=== PATIENT | female | born 1935 | race Two or more races ===

== ENCOUNTER 2024-01-08 16:47 | Observation (INO) | payer OTHER ==
[2024-01-08 18:18] LABS: BASO % 0.8 % (0-2.0); EOS % 1.6 % (0-4.5); HEMATOCRIT 43.1 % (32.4-45.2); HEMOGLOBIN 14.5 GM/dL (10.7-15.3); LYMPH % 13.8 % (8-40); MCH 31.9 pg (25.7-33.7); MCHC 33.6 g/dl (32.0-36.0); MEAN CELL VOLUME 94.8 fl (80-96); MEAN PLT VOLUME 9.2 fl (7.5-11.1); MONO % 7.9 % (3.8-10.2); NEUT % 75.9 % (42.8-82.8); PLATELET COUNT 241 10^3/uL (134-434); RBC 4.55 M/mm3 (3.60-5.2); WHITE BLOOD COUNT 6.4 K/mm3 (4.0-10.0)
[2024-01-08 18:22] LABS: VENOUS O2 SATURATION 31.1 % (70-80); VENOUS PCO2 55.5 mmHg (38-52); VENOUS PH 7.39 (7.310-7.410)
[2024-01-08 18:26] LABS: INR 1.46 (0.83-1.09); PROTHROMBIN TIME (PATIENT) 16.9 SEC (9.7-13.0)
[2024-01-08 18:29] LABS: ACTIVATED PTT 35.6 SECONDS (25.2-36.5)
[2024-01-08 18:37] LABS: CHLORIDE 103 mmol/L (98-107); POTASSIUM 5.3 mmol/L (3.5-5.1); SODIUM 138 mmol/L (136-145)
[2024-01-08 18:39] LABS: ALBUMIN 4.1 g/dl (3.4-5.0); ANION GAP 2 mmol/L (4-13); BLOOD UREA NITROGEN 23.7 mg/dL (7-18); CALCIUM 9.8 mg/dL (8.5-10.1); CO2 33 mmol/L (21-32); GLUCOSE,RANDOM 97 mg/dL (74-106); MAGNESIUM 2.2 mg/dL (1.8-2.4)
[2024-01-08 18:42] LABS: CREATININE 0.6 mg/dL (0.55-1.3); SGOT/AST 30 U/L (15-37); SGPT/ALT < 6 U/L (13-61)
[2024-01-08 18:44] LABS: BILIRUBIN,TOTAL 1.4 mg/dL (0.2-1); TOT PROT 8.3 g/dl (6.4-8.2)
[2024-01-08 18:45] LABS: ALK PHOS 67 U/L (45-117)
[2024-01-08 18:48] LABS: N-TERMINAL BNP 1504.6 pg/ml (5-450)
[2024-01-08] MEDS ORDERED: FUROSEMIDE 40 MG/4 ML INJECTABLE VIAL ONE (19:17)
[2024-01-08] MEDS: FUROSEMIDE 40 MG/4 ML INJECTABLE VIAL IVPUSH ONE (19:20)
[2024-01-08 20:51] LABS: PH,URINE 7.5 (5.0-8.0); URINE APPEARANCE CLEAR; URINE BILIRUBIN NEGATIVE (NEGATIVE); URINE COLOR YELLOW; URINE GLUCOSE (UA) NEGATIVE (NEGATIVE); URINE KETONE NEGATIVE (NEGATIVE); URINE LEUK ESTERASE NEGATIVE (NEGATIVE); URINE NITRITE NEGATIVE (NEGATIVE); URINE PROTEIN NEGATIVE (NEGATIVE); URINE UROBILINOGEN 0.2 mg/dL (0.2-1.0)
[2024-01-09 03:49] VITALS: BMI 20.9
[2024-01-09 07:06] LABS: EOS % 1.6 % (0-4.5); HEMATOCRIT 39.1 % (32.4-45.2); HEMOGLOBIN 12.9 GM/dL (10.7-15.3); LYMPH % 15.3 % (8-40); MCH 31.4 pg (25.7-33.7); MEAN CELL VOLUME 95.1 fl (80-96); MEAN PLT VOLUME 9.5 fl (7.5-11.1); MONO % 10.4 % (3.8-10.2); NEUT % 71.7 % (42.8-82.8); PLATELET COUNT 209 10^3/uL (134-434); RBC 4.11 M/mm3 (3.60-5.2); RDW 14.3 % (11.6-15.6); WHITE BLOOD COUNT 5.5 K/mm3 (4.0-10.0)
[2024-01-09 07:15] LABS: POTASSIUM 3.7 mmol/L (3.5-5.1)
[2024-01-09 07:18] LABS: CALCIUM 9.1 mg/dL (8.5-10.1)
[2024-01-09 07:22] LABS: CREATININE 0.7 mg/dL (0.55-1.3)
[2024-01-09] MEDS ORDERED: LYTES/YERBA SANTA 240 ML BOTTLE MM PRN (07:42)
[2024-01-09] MEDS ORDERED: FUROSEMIDE 40 MG/4 ML INJECTABLE VIAL IVPUSH SCH (10:00)
[2024-01-09] MEDS: PANTOPRAZOLE 40 MG TABLET PO SCH (10:13)
[2024-01-09] MEDS: APIXABAN 2.5 MG TABLET PO SCH (10:13)
[2024-01-09] MEDS: METOPROLOL TARTRATE 25 MG TABLET (FP) PO SCH (10:13)
[2024-01-09] MEDS: FUROSEMIDE 40 MG/4 ML INJECTABLE VIAL IVPUSH SCH ×2 (10:13→12:23)
[2024-01-09] MEDS: CARBIDOPA/LEVODOPA 25/100 TABLET (FP) PO SCH (10:15)
[2024-01-10 07:25] LABS: HEMATOCRIT 41.9 % (32.4-45.2); HEMOGLOBIN 13.7 GM/dL (10.7-15.3); LYMPH % 19.2 % (8-40); MCH 31.1 pg (25.7-33.7); MCHC 32.8 g/dl (32.0-36.0); MEAN PLT VOLUME 8.9 fl (7.5-11.1); MONO % 10.3 % (3.8-10.2); NEUT % 66.5 % (42.8-82.8); PLATELET COUNT 209 10^3/uL (134-434); RBC 4.41 M/mm3 (3.60-5.2); RDW 14.6 % (11.6-15.6); WHITE BLOOD COUNT 5.3 K/mm3 (4.0-10.0)
[2024-01-10 07:43] LABS: ALBUMIN 3.4 g/dl (3.4-5.0); CALCIUM 8.9 mg/dL (8.5-10.1)
[2024-01-10 07:45] LABS: CREATININE 0.7 mg/dL (0.55-1.3)
[2024-01-10 07:46] LABS: BILIRUBIN,TOTAL 1.3 mg/dL (0.2-1)
[2024-01-10] MEDS: PANTOPRAZOLE 40 MG TABLET PO SCH (10:02)
[2024-01-11] MEDS: LACTULOSE 20 GM/30 ML UDC (FOR ORAL USE ONLY) PO PRN (14:23)
[2024-01-11] MEDS: SIMETHICONE 80 MG TAB.CHEW (FP) PO PRN (14:23)
[2024-01-11] MEDS: DOCUSATE SODIUM 100 MG CAPSULE (FP) PO PRN (14:23)
[2024-01-11] MEDS: FUROSEMIDE 40 MG/4 ML INJECTABLE VIAL IVPUSH ONE (15:48)
[2024-01-11] MEDS: CARBIDOPA/LEVODOPA 25/100 TABLET (FP) PO SCH (17:19)
[2024-01-12] MEDS: CARBIDOPA/LEVODOPA 25/100 TABLET (FP) PO SCH (06:55)
[2024-01-12 07:35] LABS: BASO % 0.8 % (0-2.0); EOS % 2.5 % (0-4.5); HEMATOCRIT 42.4 % (32.4-45.2); HEMOGLOBIN 14.5 GM/dL (10.7-15.3); LYMPH % 20.1 % (8-40); MCH 32.2 pg (25.7-33.7); MCHC 34.3 g/dl (32.0-36.0); MEAN CELL VOLUME 93.9 fl (80-96); MEAN PLT VOLUME 9.4 fl (7.5-11.1); MONO % 9.4 % (3.8-10.2); NEUT % 67.2 % (42.8-82.8); PLATELET COUNT 213 10^3/uL (134-434); RBC 4.51 M/mm3 (3.60-5.2); RDW 14.4 % (11.6-15.6); WHITE BLOOD COUNT 5.8 K/mm3 (4.0-10.0)
[2024-01-12 07:58] LABS: ALBUMIN 3.6 g/dl (3.4-5.0); BLOOD UREA NITROGEN 24.3 mg/dL (7-18); CALCIUM 8.6 mg/dL (8.5-10.1)
[2024-01-12 08:01] LABS: CREATININE 0.7 mg/dL (0.55-1.3)
[2024-01-12 08:03] LABS: BILIRUBIN,TOTAL 1.1 mg/dL (0.2-1); TOT PROT 7.1 g/dl (6.4-8.2)
[2024-01-12] MEDS: FUROSEMIDE 40 MG/4 ML INJECTABLE VIAL IVPUSH SCH (09:38)
[2024-01-13] MEDS: ACETAMINOPHEN 325 MG TABLET (FP) PO PRN (13:52)
[2024-01-14 06:18] VITALS: PULSE 60
[2024-01-14 10:14] VITALS: BP 128/67; RESP 21; TEMP 98.4
== END 2024-01-14 14:51 | disposition home or self-care (01) ==
LOC: JER 16:47 → JERBED 21:56 → J4W 01-09 03:50
PROVIDERS: ADMIT Internal Medicine; ATTEND Internal Medicine
PROC: 3E033GC Introduction of Other Therapeutic Substance into Peripheral Vein, Percutaneous Approach (ICD-10-PCS; principal; 2024-01-08)
DX: I48.91 Unspecified atrial fibrillation (principal); I12.9 Hypertensive chronic kidney disease with stage 1 through stage 4 chronic kidney disease, or unspecified chronic kidney disease; I11.0 Hypertensive heart disease with heart failure; G20.A1 Parkinson's disease without dyskinesia, without mention of fluctuations; I49.5 Sick sinus syndrome; Z95.0 Presence of cardiac pacemaker; N18.9 Chronic kidney disease, unspecified; Z88.8 Allergy status to other drugs, medicaments and biological substances
CPT/HCPCS: 0241U-QW; 36415; 71045-TC-FY; 80048; 80053; 80061; 81003; 82803; 83036; 83735; 83880; 84443; 84484; 85025; 85610; 85730; 87086; 87186; 93005; 93010; 93306-TC; 96374; 97116-GP; 97162-GP; 99285-25; G0378

== ENCOUNTER 2025-05-17 14:46 | Inpatient (IN) | payer OTHER ==
[2025-05-17] MEDS: SODIUM CHLORIDE 0.9% 500 ML INFUS.BAG IV ONE (16:10)
[2025-05-17 16:20] LABS: BG HCT 42.0 % (32.4-45.2); MCHC 31.5 g/dl (32.2-35.5); MEAN CELL VOLUME 96.8 fl (79.4-94.8); MEAN PLT VOLUME 11.8 fl (9.4-12.3); RDW 14.5 % (12.5-17.0); VENOUS BASE EXCESS 0.3 mmol/L (-2-2); VENOUS O2 SATURATION 77.9 % (70-80); VENOUS PCO2 44.5 mmHg (38-52); VENOUS PH 7.38 (7.310-7.410)
[2025-05-17 16:42] LABS: CO2 30.0 mmol/L (21-32); GLUCOSE,RANDOM 108.0 mg/dL (74-106)
[2025-05-17 16:44] LABS: CREATININE 0.8 mg/dL (0.55-1.3); SGPT/ALT 13.0 U/L (13-61)
[2025-05-17 16:45] LABS: SGOT/AST 11.0 U/L (15-37)
[2025-05-17 16:46] LABS: TOT PROT 7.0 g/dl (6.4-8.2)
[2025-05-17 16:47] LABS: ALK PHOS 74.0 U/L (45-117)
[2025-05-17] MEDS ORDERED: ACETAMINOPHEN INJECTION 100 ML ONE (18:53)
[2025-05-17] MEDS: ACETAMINOPHEN 1000 MG/100 ML BAG IVPB ONE (19:00)
[2025-05-17 19:58] LABS: CO2 31.0 mmol/L (21-32); GLUCOSE,RANDOM 98.0 mg/dL (74-106)
[2025-05-17 20:01] LABS: CREATININE 0.8 mg/dL (0.55-1.3)
[2025-05-17 20:30] LABS: EPI CELLS 9 /uL (0-25.1); HYALINE CASTS 1 /uL (0-3.1); URINE APPEARANCE CLEAR; URINE BACTERIA 774 /uL (0-1359); URINE BILIRUBIN NEGATIVE (NEGATIVE); URINE COLOR DK YELLOW; URINE GLUCOSE (UA) NEGATIVE (NEGATIVE); URINE KETONE NEGATIVE (NEGATIVE); URINE LEUK ESTERASE 3+ (NEGATIVE); URINE NITRITE NEGATIVE (NEGATIVE); URINE PROTEIN 1+ (NEGATIVE); URINE RBC 4 /uL (0-23.9); URINE UROBILINOGEN 1.0 mg/dL (0.2-1.0); URINE WBC 270 /uL (0-25.8)
[2025-05-17] MEDS ORDERED: CEFTRIAXONE 1 GM/50 ML BAG ONE (21:11)
[2025-05-17] MEDS: CEFTRIAXONE 1 GM in DEXTROSE 5%-WATER - 100 ML IVPB ONE (21:16)
[2025-05-17] MEDS: POTASSIUM CHLORIDE ORAL LIQUID 20 MEQ/15 ML PO ONE (21:17)
[2025-05-17] MEDS ORDERED: POTASSIUM CHLORIDE ORAL LIQUID 20 MEQ/15 ML ONE (21:20)
[2025-05-17] MEDS ORDERED: MAGNESIUM 1GM/D5W - 1 GM/100 ML IVPB IVPB ONE (21:23)
[2025-05-17] MEDS: MAGNESIUM 1GM/D5W - 1 GM/100 ML IVPB IVPB ONE (21:27)
[2025-05-17 22:24] LABS: URINE CRYSTALS FEW /hpf; YEAST NEGATIVE (NEGATIVE)
[2025-05-17] MEDS ORDERED: DOCUSATE SODIUM 100 MG CAPSULE (FP) PO PRN (22:31)
[2025-05-18 07:33] VITALS: RESP 18
[2025-05-18 08:32] LABS: MCHC 31.5 g/dl (32.2-35.5); MEAN CELL VOLUME 97.9 fl (79.4-94.8); MEAN PLT VOLUME 12.3 fl (9.4-12.3); RDW 14.5 % (12.5-17.0)
[2025-05-18 08:58] LABS: LDL CHOLESTEROL (ONLY SJRH) 79.0 mg/dL (5-100)
[2025-05-18 09:10] LABS: CO2 28.0 mmol/L (21-32); GLUCOSE,RANDOM 101.0 mg/dL (74-106)
[2025-05-18 09:12] LABS: CREATININE 0.7 mg/dL (0.55-1.3); SGOT/AST 8.0 U/L (15-37); SGPT/ALT 12.0 U/L (13-61)
[2025-05-18 09:14] LABS: TOT PROT 6.3 g/dl (6.4-8.2)
[2025-05-18 09:16] LABS: ALK PHOS 63.0 U/L (45-117)
[2025-05-18] MEDS: FUROSEMIDE 40 MG TABLET (FP) PO SCH (10:07)
[2025-05-18] MEDS: MULTIVITAMINS (DAILY MVI) TABLET (FP) PO SCH (10:07)
[2025-05-18] MEDS: METOPROLOL TARTRATE 25 MG TABLET (FP) PO SCH (10:07)
[2025-05-18] MEDS: CEFTRIAXONE 1 GM in DEXTROSE 5%-WATER - 50 ML IVPB SCH (10:08)
[2025-05-18] MEDS: FAMOTIDINE 20 MG TABLET PO SCH (10:08)
[2025-05-18] MEDS: APIXABAN 2.5 MG TABLET PO SCH (10:08)
[2025-05-18] MEDS: CARBIDOPA/LEVODOPA 25/100 TABLET (FP) PO SCH (10:08)
[2025-05-18] MEDS: POTASSIUM CHLORIDE ORAL LIQUID 20 MEQ/15 ML PO ONE (20:26)
[2025-05-18] MEDS: PRAMIPEXOLE DIHYDROCHLORIDE 0.125 MG TABLET PO SCH (22:41)
[2025-05-18] MEDS: VANCOMYCIN HCL 125 MG CAPSULE (RESTRICTED TO ID ONLY) PO SCH (22:41)
[2025-05-19 07:21] LABS: ABSOLUTE IMMATURE GRANULOCYTES 0.02 x10^3/uL (0.0-0.031); BASOPHILS # 0.04 x10^3/uL (0.01-0.08); EOSINOPHIL % 1.3 % (0.7-5.8); EOSINOPHILS # 0.09 x10^3/uL (0.04-0.36); MCHC 31.2 g/dl (32.2-35.5); MEAN CELL VOLUME 97.2 fl (79.4-94.8); MEAN PLT VOLUME 11.7 fl (9.4-12.3); MONOCYTE # 0.70 x10^3/uL (0.24-0.86); MONOCYTE % 10.1 % (4.7-12.5); RDW 14.1 % (12.5-17.0)
[2025-05-19 08:18] LABS: CO2 29.0 mmol/L (21-32); GLUCOSE,RANDOM 101.0 mg/dL (74-106); SGPT/ALT 7.0 U/L (13-61)
[2025-05-19 08:19] LABS: SGOT/AST 10.0 U/L (15-37)
[2025-05-19 08:20] LABS: TOT PROT 6.1 g/dl (6.4-8.2)
[2025-05-19 08:21] LABS: ALK PHOS 64.0 U/L (45-117); CREATININE 0.6 mg/dL (0.55-1.3)
[2025-05-19 14:43] VITALS: BMI 20.5
[2025-05-20 08:48] LABS: ABSOLUTE IMMATURE GRANULOCYTES 0.03 x10^3/uL (0.0-0.031); BASOPHILS # 0.05 x10^3/uL (0.01-0.08); EOSINOPHIL % 2.1 % (0.7-5.8); EOSINOPHILS # 0.15 x10^3/uL (0.04-0.36); MCHC 30.4 g/dl (32.2-35.5); MEAN CELL VOLUME 98.8 fl (79.4-94.8); MEAN PLT VOLUME 12.3 fl (9.4-12.3); MONOCYTE # 0.73 x10^3/uL (0.24-0.86); MONOCYTE % 10.1 % (4.7-12.5); RDW 14.0 % (12.5-17.0)
[2025-05-20 10:04] LABS: CO2 34.0 mmol/L (21-32); GLUCOSE,RANDOM 109.0 mg/dL (74-106)
[2025-05-20 10:07] LABS: CREATININE 0.6 mg/dL (0.55-1.3); SGOT/AST 10.0 U/L (15-37); SGPT/ALT 7.0 U/L (13-61)
[2025-05-20 10:08] LABS: TOT PROT 6.3 g/dl (6.4-8.2)
[2025-05-20 10:10] LABS: ALK PHOS 65.0 U/L (45-117)
[2025-05-20] MEDS: VANCOMYCIN HCL 125 MG CAPSULE (RESTRICTED TO ID ONLY) PO SCH (14:51)
[2025-05-20] MEDS: PRAMIPEXOLE DIHYDROCHLORIDE 0.25 MG TABLET PO SCH (17:34)
[2025-05-20] MEDS: VANCOMYCIN ORAL SOLUTION 125 MG/2.5 ML PO SCH (17:34)
[2025-05-20] MEDS: KCL 10 MEQ IVPB 10 MEQ/100 ML INFUS.BAG IVPB SCH (22:25)
[2025-05-20] MEDS: POTASSIUM CHLORIDE ORAL LIQUID 20 MEQ/15 ML PO ONE (22:35)
[2025-05-21 08:19] LABS: CO2 35.0 mmol/L (21-32); GLUCOSE,RANDOM 110.0 mg/dL (74-106)
[2025-05-21 08:22] LABS: SGPT/ALT 9.0 U/L (13-61)
[2025-05-21 08:23] LABS: CREATININE 0.6 mg/dL (0.55-1.3); SGOT/AST 14.0 U/L (15-37)
[2025-05-21 08:24] LABS: TOT PROT 6.4 g/dl (6.4-8.2)
[2025-05-21 08:25] LABS: ALK PHOS 66.0 U/L (45-117)
[2025-05-21 17:28] VITALS: BP 130/63; PULSE 61; TEMP 98.1
== END 2025-05-21 19:34 | disposition home health service (06) | DRG 690 ==
LOC: JER 14:46 → JERBED 16:34 → OBSVTOIN 22:26 → J8W 05-18 02:08
PROVIDERS: ADMIT Internal Medicine; ATTEND Internal Medicine
DX: N39.0 Urinary tract infection, site not specified (principal); I13.0 Hypertensive heart and chronic kidney disease with heart failure and stage 1 through stage 4 chronic kidney disease, or unspecified chronic kidney disease; I50.32 Chronic diastolic (congestive) heart failure; A04.72 Enterocolitis due to Clostridium difficile, not specified as recurrent; I48.91 Unspecified atrial fibrillation; R62.7 Adult failure to thrive; I49.5 Sick sinus syndrome; N18.9 Chronic kidney disease, unspecified; G20.A1 Parkinson's disease without dyskinesia, without mention of fluctuations; K21.9 Gastro-esophageal reflux disease without esophagitis; K59.09 Other constipation; E87.6 Hypokalemia; E11.22 Type 2 diabetes mellitus with diabetic chronic kidney disease; B96.20 Unspecified Escherichia coli [E. coli] as the cause of diseases classified elsewhere
CPT/HCPCS: 36415; 70450-TC; 71045-TC-FY; 80048; 80053; 80061; 81003; 82803; 82962; 83036; 83690; 83735; 84100; 84439; 84443; 84484; 85025; 87086; 87324; 87449; 87637-QW; 93005; 93010; 97116-GP; 97161-GP; 99285-25; G0378

== ENCOUNTER 2025-05-23 13:20 | Observation (INO) | payer OTHER ==
[2025-05-23 14:39] LABS: ABSOLUTE IMMATURE GRANULOCYTES 0.25 x10^3/uL (0.0-0.031); BASOPHILS # 0.06 x10^3/uL (0.01-0.08); EOSINOPHIL % 1.8 % (0.7-5.8); EOSINOPHILS # 0.16 x10^3/uL (0.04-0.36); MCHC 31.7 g/dl (32.2-35.5); MEAN CELL VOLUME 96.5 fl (79.4-94.8); MEAN PLT VOLUME 11.5 fl (9.4-12.3); MONOCYTE # 1.14 x10^3/uL (0.24-0.86); MONOCYTE % 12.7 % (4.7-12.5); RDW 13.8 % (12.5-17.0)
[2025-05-23 14:49] LABS: INR 1.59 (0.83-1.09); PROTHROMBIN TIME (PATIENT) 17.5 SEC (9.7-13.0)
[2025-05-23 14:51] LABS: ACTIVATED PTT 33.9 SECONDS (25.2-36.5)
[2025-05-23 15:03] LABS: CO2 37.0 mmol/L (21-32); GLUCOSE,RANDOM 115.0 mg/dL (74-106)
[2025-05-23 15:06] LABS: CREATININE 0.5 mg/dL (0.55-1.3); SGOT/AST 24.0 U/L (15-37); SGPT/ALT 13.0 U/L (13-61)
[2025-05-23 15:08] LABS: TOT PROT 6.5 g/dl (6.4-8.2)
[2025-05-23 15:09] LABS: ALK PHOS 61.0 U/L (45-117)
[2025-05-23 15:11] LABS: N-TERMINAL BNP 2821.0 pg/ml (5-450)
[2025-05-23] MEDS ORDERED: ACETAMINOPHEN 325 MG TABLET (FP) ONE ×2 (16:00→16:02)
[2025-05-23] MEDS: ACETAMINOPHEN 500 MG TABLET (FP) PO ONE (16:44)
[2025-05-23] MEDS: ACETAMINOPHEN 1000 MG/100 ML BAG IVPB ONE ×2 (16:45→16:46)
[2025-05-23 17:38] LABS: EPI CELLS >36 /uL (0-25.1); HYALINE CASTS 1 /uL (0-3.1); URINE APPEARANCE CLEAR; URINE BACTERIA 68 /uL (0-1359); URINE BILIRUBIN NEGATIVE (NEGATIVE); URINE COLOR YELLOW; URINE GLUCOSE (UA) NEGATIVE (NEGATIVE); URINE KETONE NEGATIVE (NEGATIVE); URINE LEUK ESTERASE 1+ (NEGATIVE); URINE NITRITE NEGATIVE (NEGATIVE); URINE PROTEIN NEGATIVE (NEGATIVE); URINE RBC 20 /uL (0-23.9); URINE UROBILINOGEN 0.2 mg/dL (0.2-1.0); URINE WBC 5 /uL (0-25.8)
[2025-05-23] MEDS ORDERED: KETOROLAC TROMETHAMINE 15 MG/ML VIAL IVPUSH PRN (18:22)
[2025-05-23] MEDS: METOPROLOL TARTRATE 25 MG TABLET (FP) PO SCH (21:10)
[2025-05-23] MEDS: ATORVASTATIN CA 10 MG TABLET (FP) PO SCH (21:10)
[2025-05-23] MEDS: GABAPENTIN 100 MG CAPSULE PO SCH (21:10)
[2025-05-23] MEDS: PRAMIPEXOLE DIHYDROCHLORIDE 0.125 MG TABLET PO SCH (21:10)
[2025-05-23] MEDS: ACETAMINOPHEN 1000 MG/100 ML BAG IVPB SCH (21:11)
[2025-05-23] MEDS: LIDOCAINE 5% TOPICAL PATCH TP SCH (21:11)
[2025-05-23] MEDS: APIXABAN 2.5 MG TABLET PO SCH (21:11)
[2025-05-23] MEDS ORDERED: CARBIDOPA/LEVODOPA 25/100 TABLET (FP) PO SCH (22:00)
[2025-05-23] MEDS: CARBIDOPA/LEVODOPA 25/100 TABLET (FP) PO SCH (22:06)
[2025-05-23 22:17] LABS: YEAST NOT SEEN (NEGATIVE)
[2025-05-23] MEDS: VANCOMYCIN HCL 125 MG CAPSULE (RESTRICTED TO ID ONLY) PO SCH (23:00)
[2025-05-23] MEDS: LIDOCAINE PATCH REMOVAL MC SCH (23:05)
[2025-05-24] MEDS ORDERED: ACETAMINOPHEN 1000 MG/100 ML BAG IVPB SCH (00:30)
[2025-05-24] MEDS: VANCOMYCIN HCL 125 MG CAPSULE (RESTRICTED TO ID ONLY) PO SCH (06:33)
[2025-05-24 08:19] LABS: ABSOLUTE IMMATURE GRANULOCYTES 0.29 x10^3/uL (0.0-0.031); BASOPHILS # 0.04 x10^3/uL (0.01-0.08); EOSINOPHIL % 4.8 % (0.7-5.8); EOSINOPHILS # 0.35 x10^3/uL (0.04-0.36); MCHC 31.0 g/dl (32.2-35.5); MEAN CELL VOLUME 97.0 fl (79.4-94.8); MEAN PLT VOLUME 11.6 fl (9.4-12.3); MONOCYTE # 0.82 x10^3/uL (0.24-0.86); MONOCYTE % 11.3 % (4.7-12.5); RDW 14.0 % (12.5-17.0)
[2025-05-24 08:57] LABS: CO2 37.0 mmol/L (21-32); GLUCOSE,RANDOM 92.0 mg/dL (74-106)
[2025-05-24 09:01] LABS: CREATININE 0.6 mg/dL (0.55-1.3); SGOT/AST 12.0 U/L (15-37); SGPT/ALT 7.0 U/L (13-61)
[2025-05-24 09:02] LABS: TOT PROT 5.8 g/dl (6.4-8.2)
[2025-05-24 09:03] LABS: ALK PHOS 56.0 U/L (45-117)
[2025-05-24] MEDS: FUROSEMIDE 40 MG TABLET (FP) PO SCH (09:18)
[2025-05-24] MEDS: PANTOPRAZOLE 40 MG TABLET PO SCH (09:19)
[2025-05-24 16:17] VITALS: BMI 20.2
[2025-05-27 08:00] LABS: CO2 38.0 mmol/L (21-32); GLUCOSE,RANDOM 96.0 mg/dL (74-106)
[2025-05-27 08:04] LABS: CREATININE 0.5 mg/dL (0.55-1.3)
[2025-05-28 06:29] LABS: ABSOLUTE IMMATURE GRANULOCYTES 0.14 x10^3/uL (0.0-0.031); BASOPHILS # 0.05 x10^3/uL (0.01-0.08); EOSINOPHIL % 1.5 % (0.7-5.8); EOSINOPHILS # 0.16 x10^3/uL (0.04-0.36); MCHC 30.2 g/dl (32.2-35.5); MEAN CELL VOLUME 98.7 fl (79.4-94.8); MEAN PLT VOLUME 11.0 fl (9.4-12.3); MONOCYTE # 0.55 x10^3/uL (0.24-0.86); MONOCYTE % 5.3 % (4.7-12.5); RDW 13.9 % (12.5-17.0)
[2025-05-28 07:06] LABS: CO2 37 mmol/L (21-32); CREATININE 0.6 mg/dL (0.55-1.3); GLUCOSE,RANDOM 99 mg/dL (74-106); SGOT/AST 22 U/L (15-37); SGPT/ALT < 6 U/L (13-61)
[2025-05-28 07:09] LABS: ALK PHOS 56 U/L (45-117); TOT PROT 6.0 g/dl (6.4-8.2)
[2025-06-03 10:37] VITALS: RESP 18
[2025-06-04 14:53] VITALS: BP 107/56; PULSE 60; TEMP 97.9
== END 2025-06-04 19:00 ==
LOC: JER 13:20 → JERBED 17:30 → J7W 19:13
PROVIDERS: ADMIT Internal Medicine; ATTEND Internal Medicine
PROC: 3E033NZ Introduction of Analgesics, Hypnotics, Sedatives into Peripheral Vein, Percutaneous Approach (ICD-10-PCS; principal; 2025-05-23)
DX: G20.A1 Parkinson's disease without dyskinesia, without mention of fluctuations (principal); R29.6 Repeated falls; I13.0 Hypertensive heart and chronic kidney disease with heart failure and stage 1 through stage 4 chronic kidney disease, or unspecified chronic kidney disease; W18.39XA Other fall on same level, initial encounter; Y93.89 Activity, other specified; Y92.098 Other place in other non-institutional residence as the place of occurrence of the external cause; I48.91 Unspecified atrial fibrillation; Z79.01 Long term (current) use of anticoagulants; Z95.0 Presence of cardiac pacemaker; I49.5 Sick sinus syndrome; K21.9 Gastro-esophageal reflux disease without esophagitis; R19.7 Diarrhea, unspecified
CPT/HCPCS: 36415; 70450-TC; 71045-TC-FY; 73610-TC-LT-FY; 73630-TC-LT; 80048; 80053; 81003; 83735; 83880; 84100; 84484; 85025; 85610; 85730; 87086; 87637-QW; 93005; 93010; 96374; 97116-GP; 97162-GP; 99285-25; G0378